=== PATIENT | male | born 1975 | race American Indian/Alaskan Native ===

== ENCOUNTER 2017-06-22 19:28 | Emergency (ER) | payer MEDICARE ==
[2017-06-22 20:20] LABS: Hematocrit 34.6 % (35.5-45.6); Hemoglobin 11.9 gm/dl (11.8-15.2); Mean Corpuscular HGB Conc 34 % (32-34); Mean Corpuscular Hemoglobin 29 pg (28-32); Mean Corpuscular Volume 85 fl (84-94); Platelet Count 698 K/mm3 (140-440); Red Blood Count 4.06 M/mm3 (3.65-5.03); Red Cell Distribution Width 13.3 % (13.2-15.2); White Blood Count 21.7 K/mm3 (4.5-11.0)
[2017-06-22 20:29] LABS: Urine Drugs of Abuse Note Disclamer
[2017-06-22 20:34] LABS: Anion Gap 15 mmol/L; BUN/Creatinine Ratio 19; Blood Urea Nitrogen 17 mg/dL (9-20); Calcium 8.2 mg/dL (8.4-10.2); Carbon Dioxide 30 mmol/L (22-30); Glucose 114 mg/dL (75-100); Potassium 3.4 mmol/L (3.6-5.0); Sodium 136 mmol/L (137-145)
[2017-06-22 20:44] LABS: Bilirubin,Urine NEG (Negative); Blood,Urine SM (Negative); Ketones,Urine NEG (Negative); Leukocyte Esterase,Urine TR (Negative); Mucus,Urine 1+ /HPF; Nitrite,Urine NEG (Negative); Urobilinogen,Urine < 2.0 mg/dL (<2.0)
[2017-06-22 20:50] LABS: Blastocytes % (Manual) 0 %
[2017-06-22 20:51] LABS: Basophils % (Manual) 0 % (0.0-1.8); Eosinophils % (Manual) 0 % (0.0-4.3)
[2017-06-22 20:52] LABS: Anisocytosis 1+; Diff Status Complete; Large Platelets Few; Platelet Estimate Consistent w Auto; Poikilocytosis 1+
--- NOTE | 2017-06-22 21:27 | XRay Report ---
FINAL REPORT PROCEDURE: XR CHEST ROUTINE 2V TECHNIQUE: PA and lateral chest radiographs were obtained. CPT 48309 HISTORY: cough, congestion COMPARISON: No prior studies are available for comparison. FINDINGS: Heart: Normal. Mediastinum/Vessels: Normal. Lungs/Pleural space: Collapse consolidation changes are noted involving right middle lobe, left lingula and left lower lobe obscuring the right and left cardiac borders and also a diaphragmatic outlines. There is mild blunting of left costophrenic angle.. Bony thorax: No acute osseous abnormality. Other: IMPRESSION: Collapse consolidation of right middle lobe, left lingular and left lower lobe. Pneumonia cannot be excluded. Central bronchial obstruction secondary to mucoid impaction cannot be excluded..
--- NOTE | 2017-06-23 01:23 | Emergency Department Report ---
- General Chief Complaint: Upper Respiratory Infection Stated Complaint: COUGH Time Seen by Provider: 06/23/17 01:17 Source: patient Mode of arrival: Ambulatory Limitations: No Limitations - History of Present Illness MD Complaint: cough -: Gradual, week(s) (2 ) Severity: moderate Consistency: constant Improves With: nothing Worsens With: other (lying down) Associated Symptoms: chest pain (describes it as cramps from side to side) Treatments Prior to Arrival: none - Related Data Previous Rx's Medication Instructions Recorded Last Taken Type Levofloxacin [Levaquin TAB] 500 mg PO QDAY #14 tablet 03/26/15 Unknown Rx traMADol [Ultram 50 MG tab] 50 mg PO Q6HR PRN #20 tablet 03/26/15 Unknown Rx Prednisone 50 mg PO DAILY 7 Days tablet 06/23/17 Unknown Rx Allergies Allergy/AdvReac Type Severity Reaction Status Date / Time dairy AdvReac Nausea Uncoded 06/22/17 20:41 ED Review of Systems ROS: Stated complaint: COUGH Other details as noted in HPI Constitutional: denies: chills, fever Eyes: denies: eye pain, eye discharge, vision change ENT: denies: ear pain, throat pain Respiratory: see HPI, cough. denies: shortness of breath, wheezing Cardiovascular: denies: chest pain, palpitations Endocrine: no symptoms reported Gastrointestinal: denies: abdominal pain, nausea, diarrhea Genitourinary: denies: urgency, dysuria Musculoskeletal: denies: back pain, joint swelling, arthralgia Skin: denies: rash, lesions Neurological: denies: headache, weakness, paresthesias Psychiatric: denies: anxiety, depression Hematological/Lymphatic: denies: easy bleeding, easy bruising ED Past Medical Hx - Past Medical History Previous Medical History?: Yes Hx Congestive Heart Failure: No Hx Diabetes: No Hx Psychiatric Treatment: Yes Hx Asthma: No Hx COPD: No Additional medical history: schizophrenia, "mild MR", glaucoma, pancreatitis - Surgical History Past Surgical History?: Yes Additional Surgical History: PILONIDAL ABSCESS - Social History Smoking Status: Never Smoker Substance Use Type: None - Medications Home Medications: Home Medications Medication Instructions Recorded Confirmed Last Taken Type Levofloxacin [Levaquin TAB] 500 mg PO QDAY #14 tablet 03/26/15 Unknown Rx traMADol [Ultram 50 MG tab] 50 mg PO Q6HR PRN #20 tablet 03/26/15 Unknown Rx Prednisone 50 mg PO DAILY 7 Days tablet 06/23/17 Unknown Rx ED Physical Exam - General Limitations: No Limitations General appearance: alert, in no apparent distress - Head Head exam: Present: atraumatic, normocephalic - Eye Eye exam: Present: normal appearance - ENT ENT exam: Present: mucous membranes moist - Neck Neck exam: Present: normal inspection - Respiratory Respiratory exam: Present: normal lung sounds bilaterally. Absent: respiratory distress - Cardiovascular Cardiovascular Exam: Present: regular rate, normal rhythm. Absent: systolic murmur, diastolic murmur, rubs, gallop - GI/Abdominal GI/Abdominal exam: Present: soft, normal bowel sounds - Rectal Rectal exam: Present: deferred - Extremities Exam Extremities exam: Present: normal inspection - Back Exam Back exam: Present: normal inspection - Neurological Exam Neurological exam: Present: alert, oriented X3 - Psychiatric Psychiatric exam: Present: normal affect, normal mood - Skin Skin exam: Present: warm, dry, intact, normal color. Absent: rash ED Course Vital Signs 06/22/17 20:00 Temperature 98.7 F Pulse Rate 74 Respiratory 18 Rate Blood Pressure 139/72 O2 Sat by Pulse 99 Oximetry ED Medical Decision Making - Lab Data Result diagrams: 06/22/17 20:03 06/22/17 20:03 Critical care attestation.: If time is entered above; I have spent that time in minutes in the direct care of this critically ill patient, excluding procedure time. ED Disposition Clinical Impression: Cough Disposition: DC-01 TO HOME OR SELFCARE Is pt being admited?: No Does the pt Need Aspirin: No Condition: Good Prescriptions: Prednisone 50 mg PO DAILY 7 Days tablet Referrals: PRIMARY CARE, [Primary Care Provider] - 3-5 Days Time of Disposition: 01:25
[2017-06-23 01:48] VITALS: BP 132/80
== END 2017-06-23 01:47 | disposition home or self-care (01) ==
LOC: ED 19:28
DX: R05 Cough (principal)
CPT/HCPCS: 36415; 71020; 80048; 80307; 81001; 85007; 85025; 96372; 99283; G0480; J2930; 80320

== ENCOUNTER 2017-09-18 02:34 | Emergency (ER) | payer MEDICARE ==
[2017-09-18 07:42] VITALS: BP 135/67
[2017-09-18] MEDS ORDERED: PEPCID PO ONE (08:22)
[2017-09-18] MEDS ORDERED: BENADRYL IM ONE (08:22)
[2017-09-18] MEDS ORDERED: DECADRON IM ONE (08:22)
--- NOTE | 2017-09-18 08:24 | Emergency Department Report ---
ED Rash HPI - HPI Chief Complaint: Skin Rash Stated Complaint: ITCHING Time Seen by Provider: 09/18/17 07:10 Rash Symptoms: Yes Itching, No Facial Swelling, No Tongue/Oral Swelling, No Breathing Difficulties, No Choking Sensation, No Wheezing/Dyspnea, No Peeling, No Blistering, No Fever, No Lightheaded, No Malaise, No Myalgias Severity: mild, moderate Other History: 42-year-old male past medical history schizophrenia presents with complaint of 3 weeks of itchy skin on torso back arms and legs. Patient denies using any new medicines. States he is suspicious that a new soap used may have caused his skin to react this way. Denies any facial or tongue swelling. Awake alert and oriented 3 no respiratory distress no audible stridor or wheezing. Patient speaking in full sentences. Denies any new pets or cosmetic products or any potential food allergies. Patient states he avoids dairy because he does have a dairy allergy. ED Review of Systems ROS: Stated complaint: ITCHING Other details as noted in HPI Constitutional: denies: chills, fever Eyes: denies: eye pain, eye discharge, vision change ENT: denies: ear pain, throat pain Respiratory: denies: cough, shortness of breath, wheezing Cardiovascular: denies: chest pain, palpitations Endocrine: no symptoms reported Gastrointestinal: denies: abdominal pain, nausea, diarrhea Genitourinary: denies: urgency, dysuria Musculoskeletal: denies: back pain, joint swelling, arthralgia Skin: as per HPI, rash, pruritus. denies: lesions Neurological: denies: headache, weakness, paresthesias Psychiatric: denies: anxiety, depression Hematological/Lymphatic: denies: easy bleeding, easy bruising ED Past Medical Hx - Past Medical History Previous Medical History?: Yes Hx Congestive Heart Failure: No Hx Diabetes: No Hx Psychiatric Treatment: Yes Hx Asthma: No Hx COPD: No Additional medical history: schizophrenia, "mild MR", glaucoma, pancreatitis - Surgical History Past Surgical History?: Yes Additional Surgical History: PILONIDAL ABSCESS - Social History Smoking Status: Never Smoker - Medications Home Medications: Home Medications Medication Instructions Recorded Confirmed Last Taken Type Levofloxacin [Levaquin TAB] 500 mg PO QDAY #14 tablet 03/26/15 Unknown Rx traMADol [Ultram 50 MG tab] 50 mg PO Q6HR PRN #20 tablet 03/26/15 Unknown Rx Prednisone 50 mg PO DAILY 7 Days tablet 06/23/17 Unknown Rx Cetirizine HCl [Zyrtec] 10 mg PO QDAY #30 tablet 09/18/17 Unknown Rx Colloidal Oatmeal [Oatmeal Bath] 1 each TP ONCE #1 packet 09/18/17 Unknown Rx Hydrocortisone 1% [Hydrocortisone 1 applicatio TP TID PRN #1 tube 09/18/17 Unknown Rx 1% CREAM] Hydroxyzine HCl 25 mg PO BID PRN #30 tablet 09/18/17 Unknown Rx Mineral Oil/Hydrophil Petrolat 1 applicatio TP QDAY #1 oint...g. 09/18/17 Unknown Rx [Aquaphor Healing Ointment] Permethrin 5% [Acticin 5% CREAM] 1 applicatio TP ONCE #1 tube 09/18/17 Unknown Rx Rash Exam - Exam General: Vital signs noted. No distress. Alert and acting appropriately. HEENT: No Periorbital Edema, No Conjuctival Injection, No Chemosis, No Perioral Edema, No Tongue Edema, No Uvular Edema, No Compromised Airway, No Drooling Lungs: Yes Good Air Exchange (Normal Breath Sounds), No Wheezes, No Ronchi, No Stridor, No Cough, No Labored Respirations, No Retractions, No Use of Accessory Muscles, No Other Abnormal Lung Sounds Heart: Yes Regular, No Murmur Skin: Yes Maculopapular Rash, Yes Excoriations, No Urticarial Rash, No Morbilliform rash, No Bulla(e), No Weeping, No Tenderness, No Erythema, No Edema , No Encrustations, No Other Other: Positive: Abdomen Normal, Neurologic Normal, Musculoskeletal Normal ED Course Vital Signs 09/18/17 09/18/17 02:38 07:42 Temperature 98.3 F Pulse Rate 70 57 L Respiratory 20 20 Rate Blood Pressure 131/64 Blood Pressure 135/67 [Left] O2 Sat by Pulse 98 100 Oximetry ED Medical Decision Making - Medical Decision Making A/P: Pruritus, eczematous contact dermatitis, possible scabies 1-topical hydrocortisone, Aquaphor, oatmeal baths 2-when necessary hydroxyzine, Zyrtec 3-empiric course of permethrin cream as patient does have some linear excoriations suggestive of scabies 4- follow-up with primary care and dermatology Critical care attestation.: If time is entered above; I have spent that time in minutes in the direct care of this critically ill patient, excluding procedure time. ED Disposition Clinical Impression: Generalized pruritus, Scabies Contact dermatitis Qualifiers: Contact dermatitis type: unspecified Contact dermatitis trigger: unspecified trigger Qualified Code(s): L25.9 - Unspecified contact dermatitis, unspecified cause Disposition: DC- TO HOME OR SELFCARE Is pt being admited?: No Does the pt Need Aspirin: No Condition: Stable Instructions: Scabies (ED), Contact Dermatitis (ED), Itchy Skin (ED) Prescriptions: Cetirizine HCl [Zyrtec] 10 mg PO QDAY #30 tablet Colloidal Oatmeal [Oatmeal Bath] 1 each TP ONCE #1 packet Hydrocortisone 1% [Hydrocortisone 1% CREAM] 1 applicatio TP TID PRN #1 tube PRN Reason: Itching Hydroxyzine HCl 25 mg PO BID PRN #30 tablet PRN Reason: Itching Mineral Oil/Hydrophil Petrolat [Aquaphor Healing Ointment] 1 applicatio TP QDAY #1 oint...g. Permethrin 5% [Acticin 5% CREAM] 1 applicatio TP ONCE #1 tube Referrals: [facility] [Provider Group] - 3-5 Days [facility] [Provider Group] - 3-5 Days Forms: Work/School Release Form(ED) Time of Disposition: 08:47
== END 2017-09-18 08:55 | disposition home or self-care (01) ==
LOC: ED 02:34
DX: L25.9 Unspecified contact dermatitis, unspecified cause (principal); B86 Scabies
CPT/HCPCS: 96372; 99283; J1100; J1200

== ENCOUNTER 2018-03-17 11:17 | Emergency (ER) | payer MEDICARE ==
--- NOTE | 2018-03-17 15:47 | Emergency Department Report ---
Minor Respiratory - HPI Chief Complaint: Adult Asthma Stated Complaint: DIFFICULTY BREATHING Time Seen by Provider: 03/17/18 15:15 Duration: 1 Day Pain Location: Other (denies any pain.) Severity: mild (asthma flareup) Minor Respiratory: Yes Able to Tolerate Fluids, Yes Cough (dry cough), No Rhinorrhea, No Sore Throat, No Ear Pain, No Sick Contacts, No Hemoptysis, No Chest Pain, No Shortness of Breath, No Fever Other History: This is a 42-year-old male here reports that he has asthma started up the started last night. He said he took albuterol 5 mg treatment from EMS that brought him to the hospital because he cannot afford inhaler. He said he has a machine but he does not have the inhaler. Denies any shortness of breath. He reports his cough and with some wheezing. Denies any chest pain. Pain is 0 out of 10. ED Review of Systems ROS: Stated complaint: DIFFICULTY BREATHING Other details as noted in HPI Constitutional: denies: chills, fever Eyes: denies: eye discharge ENT: denies: ear pain, throat pain, congestion Respiratory: cough, wheezing. denies: shortness of breath, SOB with exertion, SOB at rest, stridor Cardiovascular: denies: chest pain, palpitations Gastrointestinal: denies: nausea, vomiting Musculoskeletal: denies: back pain, joint swelling, arthralgia Skin: denies: rash, lesions ED Past Medical Hx - Past Medical History Previous Medical History?: Yes Hx Congestive Heart Failure: No Hx Diabetes: No Hx Psychiatric Treatment: Yes Hx Asthma: No Hx COPD: No Additional medical history: schizophrenia, "mild MR", glaucoma, pancreatitis - Surgical History Past Surgical History?: Yes Additional Surgical History: PILONIDAL ABSCESS - Family History Family history: hypertension - Social History Smoking Status: Never Smoker Substance Use Type: None - Medications Home Medications: Home Medications Medication Instructions Recorded Confirmed Last Taken Type levoFLOXacin [Levaquin TAB] 500 mg PO QDAY #14 tablet 03/26/15 Unknown Rx traMADol [Ultram 50 MG tab] 50 mg PO Q6HR PRN #20 tablet 03/26/15 Unknown Rx predniSONE [Prednisone] 50 mg PO DAILY 7 Days tablet 06/23/17 Unknown Rx Cetirizine HCl [Zyrtec] 10 mg PO QDAY #30 tablet 09/18/17 Unknown Rx Colloidal Oatmeal [Oatmeal Bath] 1 each TP ONCE #1 packet 09/18/17 Unknown Rx Hydrocortisone 1% [Hydrocortisone 1 applicatio TP TID PRN #1 tube 09/18/17 Unknown Rx 1% CREAM] Mineral Oil/Hydrophil Petrolat 1 applicatio TP QDAY #1 oint...g. 09/18/17 Unknown Rx [Aquaphor Healing Ointment] Permethrin 5% [Acticin 5% CREAM] 1 applicatio TP ONCE #1 tube 09/18/17 Unknown Rx hydrOXYzine HCl [Hydroxyzine HCl] 25 mg PO BID PRN #30 tablet 09/18/17 Unknown Rx ALBUTEROL Inhaler [ProAir HFA 2 puff IH QID PRN 1 Days #1 03/17/18 Unknown Rx Inhaler] inhalation Albuterol Sulfate [Albuterol 0.63% 0.63 mg IH Q6H PRN #1 box 03/17/18 Unknown Rx NEBS] predniSONE [Deltasone] 20 mg PO QDAY 5 Days #5 tab 03/17/18 Unknown Rx Minor Respiratory Exam - Exam General: Vital signs noted. No distress. Alert and acting appropriately. HEENT: Yes Moist Mucous Membranes, No Pharyngeal Erythema, No Pharyngeal Exudates, No Rhinorrhea, No Conjuctival Injection, No Frontal Tenderness, No Maxillary Tenderness Ear: Neither TM Bulge, Neither TM Erythema, Neither EAC Pain, Neither EAC Discharge Neck: Yes Supple, No Adenopathy Lungs: Yes Good Air Exchange (clear to auscultate bilaterally), Yes Cough (dry cough), No Wheezes, No Ronchi, No Stridor, No Labored Respirations, No Retractions, No Use of Accessory Muscles, No Other Abnormal Lung Sounds Heart: Yes Regular, No Murmur Abdomen: No Tenderness, No Peritoneal Signs, No Normal Bowel Sounds Skin: No Rash, No Edema Neurologic: Alert and oriented, no deficits. Musculoskeletal: Unremarkable. ED Course Vital Signs 03/17/18 12:37 Temperature 98 F Pulse Rate 77 Respiratory 18 Rate Blood Pressure 142/74 O2 Sat by Pulse 93 Oximetry - Reevaluation(s) Reevaluation #1: 03/17/18 15:56 Patient received 60 MG BY MOUTH AND EMERGENCY ROOM. HIS LUNGS ARE CLEAR HE RECEIVED ALBUTEROL 5 MG with EMS. He said he is feeling better now he just wants albuterol medication. ED Medical Decision Making - Medical Decision Making This is a 42-year-old male here reports that he has asthma and it cleared up last night. He was brought to the emergency room by ambulance complaining of dry cough with some wheezing. He received albuterol 5 mg [facility]bulizer [facility] and he said he is feeling much better than before. She was given prednisone 60 mg by mouth and emergency room and physical findings for normal lung sounds without any upper respiratory symptoms. Patient is stable, vital signs are stable and afebrile. He has mild dry cough. Patient discharged for emergency room report prescription for epidural nebulizer and inhaler. Prednisone 20 mg. I discussed with him he is to follow-up with [facility] in 3 days as he does not have a primary care doctor or return to the emergency room [facility] if his symptoms occurs Critical care attestation.: If time is entered above; I have spent that time in minutes in the direct care of this critically ill patient, excluding procedure time. ED Disposition Clinical Impression: Asthma attack Qualifiers: Asthma severity: mild Asthma persistence: intermittent Qualified Code(s): J45.21 - Mild intermittent asthma with (acute) exacerbation Disposition: DC-01 TO HOME OR SELFCARE Is pt being admited?: No Does the pt Need Aspirin: No Condition: Stable Instructions: Asthma (ED) Additional Instructions: Please follow up with some [facility] in Take medication as prescribed If his symptoms worsens, return to the emergency room [facility] Prescriptions: ALBUTEROL Inhaler [ProAir HFA Inhaler] 2 puff IH QID PRN 1 Days #1 inhalation PRN Reason: wheezing and cough Albuterol Sulfate [Albuterol 0.63% NEBS] 0.63 mg IH Q6H PRN #1 box PRN Reason: Wheezing predniSONE [Deltasone] 20 mg PO QDAY 5 Days #5 tab Referrals: [facility] [Outside] - 03/20/18 PRIMARY CAREMD [Primary Care Provider] - 03/20/18 Forms: Work/School Release Form(ED)
[2018-03-17] MEDS ORDERED: DELTASONE PO ONE (15:50)
[2018-03-17 16:13] VITALS: BP 140/70
== END 2018-03-17 16:12 | disposition home or self-care (01) ==
LOC: ED 11:17
DX: J45.21 Mild intermittent asthma with (acute) exacerbation (principal); F20.9 Schizophrenia, unspecified
CPT/HCPCS: 99282; J7512